=== PATIENT | female | born 1950 | race Caucasian/White ===

== ENCOUNTER → 2017-09-20 | Outpatient (CLI) | payer OTHER ==
[~2017-09-20] MED LIST: AMOXICILLIN 50500 MG PO; BIAXIN 500 MG500 M2 PO; CIPRO500 MG PO; CLARITHROMYCIN250 M2 PO; MORPHINE; MS CONTIN15 MG PO; NEURONTIN 300300 M1 PO; NORVASC2.5 MG PO; OXYCODONE HCL E20 MG PO; OXYCODONE HCL30 MG PO; PROTONIX40 M1 PO; ROXICODONE15 MG PO; SENOKOT-S1 TA1 PO; XANAX 0.25 MG0.25 MG PO; XANAX1 MG PO; ZANAFLEX4 M1 PO
== END ==
LOC: NUC 06:25
DX: I10 Essential (primary) hypertension (principal); F17.200 Nicotine dependence, unspecified, uncomplicated; Z95.0 Presence of cardiac pacemaker

== ENCOUNTER → 2017-11-22 | Outpatient (CLI) | payer OTHER | LOC: NUC 09:17 | DX: M81.0 Age-related osteoporosis without current pathological fracture (principal); M85.89 Other specified disorders of bone density and structure, multiple sites; Z78.0 Asymptomatic menopausal state ==

== ENCOUNTER → 2018-08-08 | Outpatient (CLI) | payer OTHER | LOC: RAD 02:52 | DX: N64.4 Mastodynia (principal) ==

== ENCOUNTER 2019-09-30 14:49 | Inpatient (IN) | payer OTHER ==
[~2019-09-30] VITALS: Ht 160 cm; Wt 57.6 kg
--- NOTE | ~2019-09-30 | H ---
[facility] [place] [address] HISTORY AND PHYSICAL Name: STEFAN VNISON [facility] Room #: 362-P [facility] IN M.R.#: [id number] Admission: 09/30/19 Attend Phys: Cody Wells MD Discharge: 10/02/19 Date of : 50 Report #: [id number] THIS REPORT FOR: //name// CC: Cody Wells DATE OF SERVICE: 09/30/2019 CHIEF COMPLAINT: Syncopal episode. HISTORY OF PRESENT ILLNESS: Information is obtained from the Emergency Room physician, who had incomplete information from the paramedics who brought her to the hospital, and some from a friend. There was an syncopal episode or loss of consciousness . She does not remember the details but thinks that She was at home alone when the event happened. Apparently, she regained consciousness at home and called the paramedics. She did tell the Emergency Room physician that felt dizzy before she lost consciousness and estimated for them that she was down about 10-15 minutes. She likened the episode to a similar event several years ago prior to having had a pacemaker placed for sick sinus syndrome on 11/01/2009. There is mention of seizure like activity in the ER note also. There is an additional history of long QT syndrome secondary to methadone therapy, with ventricular tachycardia, although the precise nature of the symptomatic episodes is quite vague. She did have documented prolonged QT intervals when hospitalized on 10/05/[address] Onofre Ruffin. Her pacemaker was placed approximately a month later, although there were no intervening episodes. Chronic severe low back pain with compression fractures, osteoporosis and scoliosis for which she has had interventions and takes chronic opioid therapy. She reports neuropathy from her lumbar radiculopathy. A hysterectomy and BSO at age 21 for ovarian cancer. COPD and mild asthma. Hyperlipidemia. Nuclear stress test in 02/2016 was nonischemic. Cardiac catheterization in 2009 was unremarkable. History of duodenal ulcers. Ruptured disk. Appendectomy. Benign breast lump removed in 1969. Fibromyalgia diagnosed by Dr. Miles on 07/30/2007. History of Forteo for osteoporosis. Osteoarthritis. Severe esophageal reflux and dysphagia in addition to the stomach ulcers in the [address] [address] HISTORY AND PHYSICAL Name: SHAKIRA VINSONNAVYA [facility] Room #: 362-P [facility] IN [facility].#: [id number] Admission: 09/30/19 Attend Phys: Cody Wells MD Discharge: 10/02/19 Date of : 50 Report #: [id number]. ALLERGIES: MULTIPLE: LEXAPRO, MOST ANTIDEPRESSANTS, CELEBREX, "ANYTHING WITH BIRD, SUCH FEATHERS OR CHICKEN", FLU VACCINE, cause allergy symptoms and sensation of her throat closing. CURRENT MEDICATIONS: Amlodipine 5 mg daily, oxycodone 10 mg one every 4-5 hours with 155 tablets for 30 days' supply, baby aspirin daily, fish oil, B12, vitamin D3 and vitamin C. SOCIAL HISTORY: She drinks little alcohol. She lives alone. She takes her 93-year-old mother grocery shopping every week or 2. She has to assist her mother in and out of the car plus carrying the groceries, this puts an added stress on her back. She continues to smoke cigarettes, although is cutting down. She reports smoking marijuana whenever anyone can brings it over. Note: She reports that getting high on marijuana greatly relieves her back pain, when added to her oxycodone. FAMILY HISTORY: Noncontributory. REVIEW OF SYSTEMS: Negative except for the HPI above. She did supply information regarding her neighbor, Alicia Nguyen, phone number [phone]. Telephone call with Alicia Nguyen indicates that over the last year or so, they have noticed 1 blackout episode that she recovered from very quickly, without falling to the floor. They also noticed that she has been forgetting things, explaining that for several years, the patient drove Alicia's 16-year-old daughter to and from school twice a day the entire school year, but that several months ago, the daughter went to the patient's house after getting home from school, visited for an hour and then returned home, and then went back with her mother several hours later and the patient insisted that the daughter had not been there that day. The patient was also hospitalized at [facility] in 2019, Alicia visited her for several hours the evening of her admission and when she returned to visit again the following day, the patient denied the initial visit. They notice other episodes of her forgetting things are getting her days maximized up. They noticed times that she slurs her speech and then the following day, she will have perfectly form speech and intact cognition. Another episode, the patient commented that her dog must have chewed off her toenails, but Alicia reminded her that they all together had held the dog down and trimmed the toenails 2 days earlier. A similar event regarding forgetting having helped give the dog a bath. "I am worried that she is developing dementia," her friend Alicia said. [facility] [address] [place] [address] HISTORY AND PHYSICAL [facility] #: [facility]-P [facility] MAIA English#: [id number] Admission: 09/30/19 Attend Phys: Cody Wells MD Discharge: 10/02/19 Date of : 50 Report #: [id number] OBJECTIVE: GENERAL: The night of admission she is confused, and distractable. She has very little memory of the day's events. She has been sleeping most of the time since she left the ER. HEENT: Unremarkable. The oropharynx is normal. She has perhaps somewhat impulsive movements, but they are normal for her. There are no focal neurological deficit. LUNGS: Clear. CARDIOVASCULAR: Heart tones are normal with a soft murmur and the rhythm is regular. ABDOMEN: Soft, nontender, without hepatosplenomegaly or masses. EXTREMITIES: There is no clubbing, cyanosis or edema in the extremities. LABORATORY DATA: Admitting potassium was quite low at 2.9, replacement has been started in the Emergency Room. A drug screen is positive for oxycodone/opiates and marijuana. ASSESSMENT: 1. A "spell" of unclear nature earlier in the day of admission, with features of seizure or loss of consciousness. . 2. Friends report some erratic behavior and memory problems over the last year, "I'm afraid she has dementia." 3. Chronic severe low back pain with scoliosis and compression fractures, on stable opioid therapy without any "red flag behavior" and no previously recognized side effects. 4. Hypertension. 5. Hyperlipidemia, untreated by the patient's choice. 6. The patient continues to smoke. 7. Asymptomatic long QT syndrome as documented in [facility] records, 10/05/2009. 8. Placement of a permanent pacemaker, 11/01/2009 for significant sick sinus syndrome, although it was not documented to be symptomatic; specifically mentioned, there were several episodes of syncope with no documented arrhythmias while an event recorder was in place. There was a sinus bradycardia with heart rate in the low 30s that lasted for 10 seconds. 9. History of esophageal reflux. 10. Lumbar radiculopathy. 11. Osteoporosis. 12. Scoliosis. PLAN: The patient will been seen by the Cardiology service and the pace maker interogated. An EEG has been performed, and a formal Neurology consultation is pending. [facility] [address] [place] [address] HISTORY AND PHYSICAL Name: MAURIMANASASTEFAN [facility] Room #: 362-P [facility] IN .R.#: [id number] Admission: 09/30/19 Attend Phys: Cody Wells MD Discharge: 10/02/19 Date of : 50 Report #: [id number] Speech Therapy will be asked to do a cognitive evaluation. Serial neurological checks will be done. IV fluids containing potassuim will be continued to repleat body stores of potassium, and lab will be obtained to document adequate replacement of body stores. ADDENDUM: 1. A suspicious appearing inferior left lower lobe pulmonary nodule was seen on initial CT scanning, and felt to be potentially malignant. On rereview, this nodule has been present on CT scans going back about 4 years without growth or change, and therefore, it is felt to be benign. 2. She continues to smoke. By: [id number] Cody Wells MD /nt
[2019-09-30 14:54] VITALS: BP 120/62
[2019-09-30 15:10] LABS: ABSOLUTE NEUTROPHILS 9.2 thou/uL (1.4-8.2); BASOPHILS 0.7 % (0.0-2.0); EOSINOPHILS 0.3 % (0.0-3.0); HEMATOCRIT 46.6 % (37.0-47.0); HEMOGLOBIN 15.3 gm/dL (12.0-15.0); LYMPHOCYTES 30.2 % (24.0-44.0); MCH 30.5 pg (26.0-34.0); MCHC 32.8 g/dL (28.0-37.0); MCV 93.2 fL (80.0-100.0); MONOCYTES 3.4 % (1.0-8.0); POLYS 65.4 % (36.0-66.0); RDW 13.8 % (10.5-14.5); WBC 14.1 thou/uL (4.0-11.0)
[2019-09-30 15:14] LABS: ANION GAP 22 mmol/L (7-16); BUN 11 mg/dL (7-18); CALCIUM 9.4 mg/dL (8.5-10.1); CHLORIDE 97 mmol/L (98-107); CO2 20 mmol/L (21-32); GLUCOSE 146 mg/dL (74-106); SODIUM 139 mmol/L (136-145)
[2019-09-30 15:24] LABS: MAGNESIUM 2.1 mg/dL (1.8-2.4); POTASSIUM 2.9 mmol/L (3.5-5.1); TROPONIN-I <0.06 ng/mL (<0.06)
[2019-09-30 15:37] LABS: LARGE PLATELETS OCCASIONAL; PLATELET COUNT 304 thou/uL (150-400)
[2019-09-30 15:42] LABS: URINE BILIRUBIN NEGATIVE (Negative); URINE BLOOD TRACE (Negative); URINE CLARITY CLEAR; URINE COLOR YELLOW; URINE GLUCOSE-RANDOM* NEGATIVE (Negative); URINE KETONES NEGATIVE (Negative); URINE LEUKOCYTES-REFLEX NEGATIVE (Negative); URINE NITRITE-REFLEX NEGATIVE (Negative); URINE PROTEIN (DIPSTICK) 2+ (Negative); URINE UROBILINOGEN 0.2 E.U./dl (0.2-1.0)
[2019-09-30 15:50] LABS: AMP/METHAMP Negative (Negative); BARBITURATES Negative (Negative); BENZODIAZEPINES Negative (Negative); COCAINE Negative (Negative); METHADONE Negative (Negative); OPIATES POSITIVE (Negative); PCP Negative (Negative)
[2019-09-30 15:52] LABS: AMORPHOUS URATES Few /LPF (None Seen); CASTS None Seen /LPF (None Seen); SQUAMOUS 0-3 Few /LPF (0-3); URINE RBC 0-2 Rare /HPF (0-2)
[2019-09-30 15:53] LABS: BACTERIA-REFLEX 1-9 Few /HPF (None Seen); URINE WBC-REFLEX None Seen /HPF (0-5)
[2019-09-30] MEDS ORDERED: ASA81BEC PO (17:45)
[2019-09-30] MEDS ORDERED: OXYCODONE HCL E10 MG PO (17:45)
[2019-09-30 17:58] VITALS: BP 133/68
--- NOTE | 2019-09-30 18:40 | NUR ---
PT ARRIVED FROM ER PER CART...NEIGHBOR REPORTED SHE TOOK SOME OXYCODONE AND CAME OVER AND HAD " SEIZURE LIKE ACTIVITY" EMS WAS CALLED AND PATIENT WAS GIVEN NARCAN IN ROUTE AND ZOFRAN...SHE PERKED UP WHEN ARRIVED TO ER... IN THE ER PATIENT WAS REPORTED TO BE EXTREMELY FIDGETY AND IMPULSIVE..
[2019-09-30 18:43] VITALS: BP 132/62
[2019-09-30 19:33] VITALS: BP 110/52
[2019-09-30 23:41] VITALS: BP 131/72
--- NOTE | 2019-10-01 01:02 | NUR ---
ADMITTED FROM ED. PER ED REPORT PT TOOK AM OXYCODONE FOR PAIN AND VISITED NEIGHBOR. PTS NEIGHBOR OBSERVED LETHARGIC AND SEIZURE LIKE ACTIVITY AND CALLED EMS. PT REPORTED THAT EMS VISITED HER IN HER OWN HOME AND THAT SHE HAD PASSED OUT PRIOR TO EMS ARRIVING. EMS PROVIDED PT NARCAN AND ZOFRAN. ED REPORTED PT TO BE RESTLESS AND IMPULSIVE AND FIDGETY. PT SLEEPING IN BED UPON ARRIVAL TO SHIFT. PT AWAKENED FOR ADMISSION HISTORY. PT HAS DOG AT HOME AND WAS TRYING TO ARRANGE FOR NEIGHBOR TO GET KEYS TO LET HER DOG OUT. PT IDENTIFIED HAVING A SON IN TOWN SUPPORT. IVF INTACT. SLIV WRAPPED IN [place]. HX PACEMAKER, SPINAL DAMAGE, NEUROPATHY, HYSTERECTOMY. PT REPORTS CHRONIC NECK AND UPPER BACK PAIN THAT SHE SAYS AFFECTS HER WALKING AND STABILITY. PT DOES LEAN TO SIDE AND BACK WHEN AMBULATING AND IMPULSIVELY GOES FROM SITTING TO STANDING. BLUNTED AFFECT, DUSKY SKIN TONE. PT INFORMED OF DR NAIR FOR CAROTID US AND EEG PLANNED FOR TOMORROW. BED ALARM ON.
[2019-10-01 04:25] VITALS: BP 114/67
[2019-10-01 04:26] LABS: ALBUMIN 3.5 g/dL (3.4-5.0); CALCIUM 8.1 mg/dL (8.5-10.1); CREATININE 0.6 mg/dL (0.6-1.0); TOTAL BILIRUBIN 0.4 mg/dL (<0.1-1.0); TOTAL PROTEIN 6.4 g/dL (6.4-8.2)
[2019-10-01 04:38] LABS: POTASSIUM 4.5 mmol/L (3.5-5.1)
[2019-10-01 07:28] VITALS: BP 117/61
[2019-10-01 10:59] VITALS: BP 110/92
[2019-10-01 15:36] VITALS: BP 130/66
--- NOTE | 2019-10-01 16:06 | 2DMMODE ---
[facility] [place] [address] 2 D/M-MODE ECHOCARDIOGRAM Name: STEFAN VINSON [facility] Room #: 362-P ADM IN R.#: [id number] Admission: 09/30/19 Attend Phys: Cody Wells MD Discharge: Date of : 50 Report #: [id number] THIS REPORT FOR: cc: Cody Wells MD, Stanley P. MD Lammoglia, Francisco J. MD ~ THIS REPORT FOR: //name// APPROVED REPORT Study performed: 10/01/2019 15:01:52 EXAM: Comprehensive 2D, Doppler, and color-flow Echocardiogram Patient Location: Bedside Room #: 362 Status: routine BSA: 1.56 HR: 65 bpm BP: 117/61 mmHg Rhythm: NSR Other Information Study Quality: Adequate Risk Factors: Cardiac Risk Factors: HTN, Hyperlipidemia Indications Pacemaker Syncope 2D Dimensions IVSd: 11.24 (7-11mm) LVOT Diam: 19.00 (18-24mm) LVDd: 39.87 mm PWd: 11.92 (7-11mm) Ascending Ao: 32.10 (22-36mm) LVDs: 28.01 (25-40mm) Aortic Root: 29.02 mm LV Single Plane 4CH: 60.11 % LV Single Plane 2CH: 69.10 % Biplane EF: 64.5 % Volumes Left Atrial Volume (Systole) [facility] [place] [place] [address] 2 D/M-MODE ECHOCARDIOGRAM Name: STEFAN VINSON [facility] Room #: 362-P [facility] IN .R.#: [id number] Admission: 09/30/19 Attend Phys: Cody Wells, Discharge: Date of : 50 Report #: [id number] Single Plane 4CH: 48.30 mL Single Plane 2CH: 52.40 mL LA ESV Index: 38.00 mL/m2 Aortic Valve AoV Peak Jamal.: 1.50 m/s AO Peak Gr.: 9.00 mmHg LVOT Max P.10 mmHg LVOT Max V: 1.01 m/s GERMAN Vmax: 1.95 cm2 Mitral Valve E/A Ratio: 1.2 MV Decel. Time: 281.68 ms MV E Max Jamal.: 1.13 m/s MV A Jamal.: 0.94 m/s MV PHT: 81.69 ms IVRT: 83.04 ms TDI E/Lateral E': 22.60 E/Medial E': 18.83 Medial E' Jamal.: 0.06 m/s Lateral E' Jamal.: 0.05 m/s Pulmonary Valve PV Peak Jamal.: 1.01 m/s PV Peak Gr.: 4.09 mmHg Pulmonary Vein P Vein S: 0.62 m/s P Vein A: 0.28 m/s P Vein D: 0.52 m/s P Vein A Dur.: 124.6 msec P Vein S/D Ratio: 1.19 Tricuspid Valve TR Peak Jamal.: 2.53 m/s RAP Estimate: 7.00 mmHg TR Peak Gr.: 25.69 mmHg PA Pressure: 33.00 mmHg Left Ventricle The left ventricle is normal size. There is normal LV segmental wall motion. There is normal left ventricular wall thickness. Left ventricular systolic function is normal. The left ventricular ejection fraction is within the normal range. LVEF is 60-65%. Right Ventricle The right ventricle is normal size. The right ventricular systolic function is normal. Pacemaker lead is present in the right ventricle. [facility] [address] [place] [address] 2 D/M-MODE ECHOCARDIOGRAM [facility] Room #: 362-[facility] IN M.R.#: [id number] Admission: 09/30/19 Attend Phys: Cody Wells, Discharge: Date of : 50 Report #: [id number] The left atrium size is normal. The right atrium size is normal. Pacemaker lead is present in the right atrium. Aortic Valve The aortic valve is normal in structure. No aortic regurgitation is present. There is no aortic valvular stenosis. Mitral Valve The mitral valve is normal in structure. Trace mitral regurgitation. No evidence of mitral valve stenosis. Tricuspid Valve The tricuspid valve is normal in structure. Trace tricuspid regurgitation. Pulmonary artery pressure is 33 mmHg. Pulmonic Valve The pulmonary valve is normal in structure. There is no pulmonic valvular regurgitation. Great Vessels The aortic root is normal in size. The ascending aorta is normal in size. IVC is normal in size and collapses >50% with inspiration. Pericardium There is no pericardial effusion. <Conclusion> The left ventricle is normal size. LVEF is 60-65%. The right ventricle is normal size. Pacemaker lead is present in the right ventricle. The right atrium size is normal. Pacemaker lead is present in the right atrium. The aortic valve is normal in structure. The mitral valve is normal in structure. Trace mitral regurgitation. The tricuspid valve is normal in structure. Trace tricuspid regurgitation. Pulmonary artery pressure is 33 [place] [address] 2 D/M-MODE ECHOCARDIOGRAM Name: ALISSONSTEFAN [facility] Room #: 362-P [facility] IN M.R.#: [id number] Admission: 09/30/19 Attend Phys: Cody Wells, Discharge: Date of : 50 Report #: [id number] The pulmonary valve is normal in structure. There is no pericardial effusion. <ELECTRONICALLY SIGNED> By: Vicente Parekh MD 10/01/19 1606 1606 1606 Vicente Parekh MD /INF
[2019-10-01 16:15] LABS: APTT 27.1 Seconds (24.5-32.8); PROTIME 10.5 Seconds (9.3-11.4)
--- NOTE | 2019-10-01 17:06 | NUR ---
INITIAL ASSESSMENT: Received consult for discharge planning. SW reviewed chart and spoke with nursing and attending physician. Pt was admitted from home after syncopal event. SW met with pt at bedside. Introduced role of SW. Pt is alert/orientated x 4. Pt reports she lives at home alone. Prior to admission, pt was independent with ADLs. Pt does have a walker at home, but does not use it. 2 steps to enter the home. No steps inside. No hx of services. Pt states she has been to several SNFs in the past for rehab after back surgery. Pt reports she was in a wheelchair for 3 yrs due to back issues. Pt's PCP is Dr. Wells. Pt's goal is to return home when medically stable. SW is following to assist as needed with discharge planning.
[2019-10-01 19:38] VITALS: BP 128/67
--- NOTE | 2019-10-01 20:01 | NUR ---
AL IS NOTED TO BE QUITE IMPULSIVE. ORDERS TO GET RECORDS FROM [facility]. CALLED [facility] AND LEFT VOICEMAIL. THEY HAVE NOT CALLED BACK. PATIENT HAS NOT HAD SYNCOPAL EPISODE TODAY. WILL CONT WITH PLAN OF CARE.
[2019-10-02 04:41] VITALS: BP 162/74
[2019-10-02 06:29] LABS: ALBUMIN 3.9 g/dL (3.4-5.0); CALCIUM 8.9 mg/dL (8.5-10.1); CREATININE 0.6 mg/dL (0.6-1.0); POTASSIUM 3.8 mmol/L (3.5-5.1); TOTAL BILIRUBIN 0.5 mg/dL (<0.1-1.0); TOTAL PROTEIN 7.1 g/dL (6.4-8.2)
--- NOTE | 2019-10-02 07:42 | NUR ---
PT MAKING PROGRESS TOWARDS GOALS. GIVEN PAIN MEDICATIONS PER ORDERS. PAIN FREQUENTLY RATED AT 9/10 WITH PAIN REDUCED TO 5/10 AN HOUR AFTER DOSING. ONCE OVERNIGHT PT ASKED IF THE DOSE COULD BE INCREASED TO TWO TABS. WHEN SHE HEARD THAT A CALL WOULD BE PLACED TO DR. MOTTA SHE STATED NOT TO MAKE THAT CALL. ENOURAGED TO CALL THIS RN IF SHE NEEDED THE DOSE INCREASED PRIOR TO DR. MOTTA ARRIVAL TODAY.
[2019-10-02 07:47] VITALS: BP 136/71
[2019-10-02 07:47] LABS: FOLIC ACID 34.1 ng/mL (8.6-58.9)
[2019-10-02] MEDS ORDERED: OXYCODONE HCL E10 MG PO (14:14)
[2019-10-02 14:25] VITALS: BP 136/71
--- NOTE | 2019-10-02 17:33 | NUR ---
pt is A&OX3, PT does not have syncope and chest pain, pt's LAB results have improved, RN has received order to DC PT to home, RN has giving pt and pt's son DC teaching , both understand well , pt's son picked pt to home at 1430pm.
--- NOTE | 2019-10-08 18:31 | HC ---
[facility] [place] [address] CONSULTATION Name: STEFAN VINSON [facility] Room #: 362-P [facility] IN M.R.#: [id number] Admission: 09/30/19 Attend Phys: Cody Wells MD Discharge: 10/02/19 Date of : 50 Report #: [id number] THIS REPORT FOR: cc: Cody Wells MD, Stanley P. MD Khosla, Parveen K. MD ~ THIS REPORT FOR: //name// CC: Cody Wells DATE OF SERVICE: 10/01/2019 HISTORY OF PRESENT ILLNESS: A 69-year-old female patient who was seen by me to determine any neurological etiology for the patient's syncope. This patient indicated that there is no firsthand witness to this syncope episode. She felt lazy and then lost consciousness. She had these episodes before the pacemaker was put in, which was several years ago. She has not had an episode like this after that. She was unable to dial the number herself, so history is pretty poorly defined, the best I can tell. There was some question of seizure-like activity, which was noticed. She was lethargic, but has become better. REVIEW OF SYSTEMS: Positive for pacemaker several years ago. It is not clear if the pacemaker is MRI compatible or not. She has a history of cardiac catheterization and question of neuropathy. She had a total hysterectomy. She has duodenal ulcers as I understand. She smokes marijuana. She was pretty evasive about how often she smokes marijuana. She also takes narcotics and urine was positive for both marijuana and opioids. That was the patient's relevant 14-point review of system. PAST MEDICAL HISTORY: Positive for this episode, but that happened before the patient had a pacemaker. FAMILY HISTORY: Unremarkable. SOCIAL HISTORY: She smokes marijuana. PHYSICAL EXAMINATION: NEUROLOGIC: Indicate she is alert, responsive, able to follow simple and complex command. Her speech, concentration, fund of knowledge and memory is at her baseline. Cranial nerve examination 2-12 looks mostly unremarkable. Neuromuscular examination as checked for strength, sensation, reflexes and tone is symmetrical. I could not look at the patient's fundus. There is no cerebellar sign. There is no meningeal sign. She is moderately built individual. She does not have any dysmorphic features of eyes, ears and face. VITAL SIGNS: Blood pressure is 130/66, respiration is 22, pulse is 65, temperature is 98.8. [facility] [address] [place] [address] CONSULTATION Name: STEFAN VINSON [facility] Room #: 362-P [facility] IN [facility]#: [id number] Admission: 09/30/19 Attend Phys: Cody Wells MD Discharge: 10/02/19 Date of : 50 Report #: [id number] LABORATORY DATA: Indicated white count of 14.1 and when she came in, her potassium was only 2.9. She did have a carotid Doppler, I did not know whether this patient had a CT scan of the head or not, I cannot find it. She did have an EEG, which was unremarkable. She has no respiratory difficulty or rhonchi. IMPRESSION: This episode appeared most likely non-neurological, but is so unstructured, we need to exclude all the etiology in this patient. She does not know if the pacemaker is MRI compatible, I will try to find, but is several years old and maybe MRI incompatible. Carotid Doppler is normal. They are going to interrogate the pacemaker. I think we should await that interrogation and see if we can scrap picker some abnormality or what the pacemaker did during that time. Her EEG is unremarkable and I will get a CT scan of the head since I do not see any CT scan. I discussed all of it with the patient and this patient should not drive at least for 6 months until some cardiology cause can be localized and treated. Thank you very much for this referral. <ELECTRONICALLY SIGNED> By: Juancho Ma MD 10/08/19 1831 1706 2303 Juancho Ma MD /nt
--- NOTE | 2019-10-08 18:32 | EEG ---
[facility] [place] [address] ELECTROENCEPHALOGRAM Name: STEFAN VINSON [facility] Room #: 362-P [facility] IN M.R.#: [id number] Admission: 09/30/19 Attend Phys: Cody Wells MD Discharge: 10/02/19 Date of : 50 Report #: [id number] THIS REPORT FOR: //name// CC: Cody Wells DATE OF SERVICE: 10/01/2019 INDICATION: This patient is being evaluated for an episode of syncope. PROCEDURE: EEG was done by placing the electrode by standard 10-20 system of electrode placement. Both referential and sequential montages were used for recording. The patient's background activity is about 11 Hz and 40 microvolt. This is a symmetrical activity. The patient became drowsy that is associated with bilateral slowing. Photic stimulation is unremarkable. Throughout the record, no active epileptiform activity was noticed. IMPRESSION: This patient's EEG is within normal limits and does not show any active epileptiform activity. <ELECTRONICALLY SIGNED> By: Juancho Ma MD 10/08/19 1832 1332 1340 Juancho Ma MD /nt
--- NOTE | 2019-10-09 11:21 | EKG ---
[facility] [place] [address] ELECTROCARDIOGRAM REPORT Name: STEFAN VINSON [facility] Room #: 362-P [facility] IN M.R.#: [id number] Admission: 09/30/19 Attend Phys: Cody Wells MD Discharge: 10/02/19 Date of : 50 Report #: [id number] THIS REPORT FOR: cc: Cody Wells MD, Stanley P. MD Couchonnal, Luis F. MD ~ THIS REPORT FOR: //name// [facility] ED Test Date: 2019-09-30 Test Time: 15:06:30 Pat Name: STEFAN VINSON Department: Room: 362 Gender: F Clinical Services Manager: CLAY : 1950 Requested By: Bala Herrera Order Number: [id number] MD: Chip Mays Measurements Intervals [place] Rate: 77 P: 52 VT: 153 QRS: -48 QRSD: 103 T: 64 QT: 281 QTc: 318 Interpretive Statements Sinus rhythm Incomplete RBBB and LAFB Abnormal R-wave progression, late transition Nonspecific repol abnormality, lateral leads Compared to ECG 03/04/2016 07:13:18 Left anterior fascicular block now present Right bundle-branch block now present Early repolarization now present Electronically Signed On 10-01-2019 8:40:26 [employer] by Chip Mays [email or web address] <ELECTRONICALLY SIGNED> By: Chip Mays MD 10/01/19 0840 1506 1506 Chip Mays MD /EPI
== END 2019-10-02 14:38 | disposition home or self-care (01) | DRG 312 ==
LOC: ER 14:49 → 3W 18:00 → EROBS 18:00 → 3W 18:57
PROVIDERS: Emergency Medicine; ADMIT Internal Medicine
PROC: 4B02XSZ Measurement of Cardiac Pacemaker, External Approach (ICD-10-PCS; principal; 2019-10-02)
DX: R55 Syncope and collapse (principal); E87.6 Hypokalemia; D38.1 Neoplasm of uncertain behavior of trachea, bronchus and lung; J44.9 Chronic obstructive pulmonary disease, unspecified; G62.9 Polyneuropathy, unspecified; E78.5 Hyperlipidemia, unspecified; M19.90 Unspecified osteoarthritis, unspecified site; M81.0 Age-related osteoporosis without current pathological fracture; G89.29 Other chronic pain; M54.5 Low back pain; M41.9 Scoliosis, unspecified; M54.16 Radiculopathy, lumbar region; Z95.0 Presence of cardiac pacemaker; Z90.710 Acquired absence of both cervix and uterus; Z85.43 Personal history of malignant neoplasm of ovary; Z88.8 Allergy status to other drugs, medicaments and biological substances; Z71.6 Tobacco abuse counseling; Z79.891 Long term (current) use of opiate analgesic
CPT/HCPCS: 10879